=== PATIENT | female | born 1940 | race African-American/Black ===

== ENCOUNTER 2017-08-19 05:42 | Day surgery (SDC) | payer MEDICARE, OTHER ==
--- NOTE | 2017-08-17 02:15 | Pre-op HX & Phy Repo 2 SIG ---
DATE OF ADMISSION: 08/19/2017 DATE OF SURGERY: 08/19/2017 Preoperative Diagnosis: Significant epiretinal membrane with vitreomacular traction syndrome, right eye. Brief Note: This is the first [facility] retinal surgery admission for the patient, who is a very nice 77-year-old lady, who complains of poor vision in the right eye. Past Ocular History: Her past ocular history is remarkable for development of a significant central retinal vein occlusion in the right, which has been successfully treated with injections of Avastin and Eylea. As the edema has subsided, she has been noted to develop significant vitreomacular traction syndrome with splitting of the retinal layers and is admitted for vitrectomy. Her past ocular history is also remarkable for cataract surgery in the right eye done sometime ago. She has a cataract in the left. MEDICAL HISTORY: Remarkable for diabetes and hypertension. Medications: She is on atenolol, losartan, metformin, hydralazine, and simvastatin. ALLERGIES: She has no allergies. SOCIAL HISTORY: She does not smoke or drink. Physical Examination: Best vision at the time of admission was 20/200 in the right eye and 20/40- in the left with pressures 14 and 13. The anterior segment on the right showed a posterior chamber lens in reasonable position. The left showed a moderate cataract. Funduscopic examination of the right eye showed a resolving central retinal vein occlusion. There was a dense epiretinal membrane with preretinal fibrosis and vitreomacular traction. The left fundus showed pre-proliferative diabetic retinopathy with scattered macular aneurysms. ASSESSMENT: 1. Epiretinal membrane, right eye with vitreomacular traction syndrome. 2. Macular pucker, right eye. 3. Pseudophakia, right eye. 4. Cataract, left eye. Plan: The plan is to perform a pars plana vitrectomy with ICG-assisted membrane peeling on the right. An endolaser will likely be performed as well as an air-fluid exchange. The risks and benefits of surgery were gone over with the patient including the potential for infection, hemorrhage, glaucoma, and remote possibility of loss of the eye. The risk of anesthesia was discussed. The patient understands and consents to the surgery, which will be performed on Saturday. Holger Donovan M.D. DR: DENNIS JOB#: [id number] CC:
[~2017-08-19] VITALS: Ht 149.9 cm; Wt 73.5 kg
[2017-08-19] VITALS (8 sets, daily range): BP systolic 141–189; BP diastolic 63–78
[~2017-08-19 05:42] MED LIST: ASPIR-LOW81 MG PO; ATENOLOL100 MG PO; COMBIVENT INH14.7 GM INH; Cyclopentolate 1% Opth Sol ONE; DOXAZOSIN MESYLA8 MG PO; Flurbiprofen 0.03% Opth Sol 2.5ml ONE; GLUCOPHAGE500 MG PO; HYDRALAZINE HC100 MG PO; HYDROCHLOROTHIA25 MG PO; IRON325 M1 PO; LISINOPRIL40 MG PO; Phenylephrine 2.5% Op Soln ONE; Vigamox Opth Soln ONE; ZOCOR20 MG PO
[2017-08-19] MEDS ORDERED: Pred Forte 1% Opth Susp 1ml RIGHT EYE PRN (06:00)
[2017-08-19] MEDS ORDERED: Avastin 10mg Inj IVITRE ONE (06:00)
[2017-08-19] MEDS: Phenylephrine 2.5% Op Soln RIGHT EYE SCH ×3 (06:19→06:38)
[2017-08-19] MEDS: Cyclopentolate 1% Opth Sol RIGHT EYE SCH ×3 (06:19→06:38)
[2017-08-19] MEDS: Vigamox Opth Soln RIGHT EYE SCH ×3 (06:20→06:38)
[2017-08-19] MEDS: Flurbiprofen 0.03% Opth Sol 2.5ml RIGHT EYE SCH ×3 (06:20→06:38)
--- NOTE | 2017-08-19 06:20 | Pre-Procedure Note/Attestation ---
Pre-Procedure Note/Attestation Complete Prior to Procedure Planned Procedure: right Procedure Narrative: PPV, Membrane peel, endolaser, gas-fluid exchange Right eye Indications for Procedure Pre-Operative Diagnosis: Macular pucker with vitreomacular traction syndrome Right eye Attestation I attest that I discussed the nature of the procedure; its benefits; risks and complications; and alternatives (and the risks and benefits of such alternatives ), prior to the procedure, with the patient (or the patient's legal software sales representative). I attest that, if there was a reasonable possibility of needing a blood transfusion, the patient (or the patient's legal software sales representative) was given the [place] Department [employer] Services standardized written summary, pursuant to the [place] Blood Safety Act ([place] Health and Safety Code # 1645, as amended). I attest that I re-evaluated the patient just prior to the surgery and that there has been no change in the patient's H&P, except as documented below: GLEN RAMOS Aug 19, 2017 06:20
[2017-08-19] MEDS ORDERED: LOSARTAN POTASS50 MG ORAL (06:46)
[2017-08-19] MEDS ORDERED: BSS 500ml btl ONE (07:07)
[2017-08-19] MEDS ORDERED: Kenalog-40 1ml Vial ONE (07:07)
[2017-08-19] MEDS ORDERED: Kenalog-10 5ml Inj ONE (07:08)
[2017-08-19] MEDS ORDERED: Tetracaine 0.5% Opth Soln ONE (07:08)
[2017-08-19] MEDS ORDERED: Maxitrol Opth Oint 3.5gm ONE (07:08)
[2017-08-19] MEDS ORDERED: Dexamethasone 4mg/ml vial ONE (07:08)
[2017-08-19] MEDS ORDERED: Bupivacaine 0.75% 30ml vial INJ ONE (07:09)
[2017-08-19] MEDS ORDERED: Lidocaine 2% MPF 5ml Vial INJ ONE (07:09)
[2017-08-19] MEDS ORDERED: BSS 15ml BTL ONE (07:09)
[2017-08-19] MEDS ORDERED: EPINEPHrine 1mg/1ml Amp ONE (07:09)
[2017-08-19] MEDS ORDERED: Povidone-Iodine 5% opth solution ONE (07:09)
[2017-08-19] MEDS ORDERED: Sodium Hyaluronate 10 mg/ml 0.85ml ONE (07:10)
[2017-08-19 07:17] LABS: BASOPHILS % (AUTO) 1.6 % (0.0-2.0); EOSINOPHILS % (AUTO) 3.4 % (0.0-3.0); LYMPHOCYTES % (AUTO) 37.2 % (20.0-45.0); MEAN CORPUSCULAR HEMOGLOBIN 30.8 PG (27.0-31.0); MEAN CORPUSCULAR HGB CONC 32.9 G/DL (32.0-36.0); MEAN CORPUSCULAR VOLUME 94 FL (80-99); MEAN PLATELET VOLUME 7.9 FL (6.5-10.1); MONOCYTES % (AUTO) 7.8 % (1.0-10.0); NEUTROPHILS % (AUTO) 49.9 % (45.0-75.0); PLATELET COUNT 205 K/UL (150-450); RED CELL DISTRIBUTION WIDTH 12.9 % (11.6-14.8); WHITE BLOOD COUNT 8.7 K/UL (4.8-10.8)
[2017-08-19] MEDS ORDERED: Indocyanine Green 25mg Inj INJ ONE (07:20)
[2017-08-19 07:25] LABS: ANION GAP 14 (5-15); CALCIUM 11.4 mg/dL (8.6-10.2); CARBON DIOXIDE 24 mEQ/L (20-30); CHLORIDE 101 mEQ/L (98-107); CREATININE 1.5 mg/dL (0.5-0.9); HEMOLYSIS 42; POTASSIUM 4.2 mEQ/L (3.4-4.9); SODIUM 139 mEQ/L (135-145)
[2017-08-19] MEDS ORDERED: Alfentanil 2ml Inj ONE (07:30)
[2017-08-19] MEDS ORDERED: LR 1000ml ONE (07:30)
[2017-08-19] MEDS ORDERED: Propofol 200mg/20ml IV ONE (07:30)
[2017-08-19] MEDS ORDERED: Sodium Chloride 10ml vial INJ ONE (07:30)
[2017-08-19] MEDS ORDERED: Sterile Water Irrig 1000ml IRRIG ONE (07:30)
[2017-08-19] MEDS ORDERED: Lidocaine 1% MPF 10mg/ml 5ml ONE (07:30)
[2017-08-19] MEDS ORDERED: Midazolam 2mg/2ml Inj ONE (07:30)
[2017-08-19] MEDS ORDERED: Norco 5mg/325mg tab ORAL PRN ×2 (07:30→07:45)
[2017-08-19] MEDS ORDERED: NS Irrig 1000ml ONE (07:30)
--- NOTE | 2017-08-19 07:38 | Anethesia Preoperative Eval ---
Anesthesia Pre-op PMH/ROS General Date of Evaluation: Aug 19, 2017 Time of Evaluation: 07:26 Anesthesiologist: Aj ASA Score: ASA 3 Mallampati Score Class I : Soft palate, uvula, fauces, pillars visible Class II: Soft palate, uvula, fauces visible Class III: Soft palate, base of uvula visible Class IV: Only hard plate visible Mallampati Classification: Class III Surgeon: Venus Diagnosis: Macular Puker OD Surgical Procedure: Vitrectomy OD Family History: no anesthesia problems Allergies: Coded Allergies: No Known Allergies (Verified Allergy, Unknown, 08/03/10) Medications: see eMAR Past Medical History Cardiovascular: Reports: HTN, CAD - CHF, SX, arrhythmia Pulmonary: Reports: other - Bronchitis Endocrine: Reports: DM Hematology/Immune: Reports: anemia Other: obesity - BMI 337 Anesthesia Pre-op Phys. Exam Physician Exam Last Vital Signs Date Time Temp Pulse Resp B/P (MAP) Pulse Ox O2 Delivery O2 Flow Rate FiO2 08/19/17 06:24 98.4 68 20 177/66 99 Room Air Constitutional: NAD Neurologic: CN 2-12 intact Cardiovascular: RRR Respiratory: CTA Gastrointestinal: S/NT/ND Airway Exam Mallampati Score: Class III MO: limited ROM: limited Teeth: missing, intact Anesthesia Pre-op A/P Labs Hematology Test 08/19/17 06:15 White Blood Count 8.7 K/UL (4.8-10.8) Red Blood Count 3.70 M/UL (4.20-5.40) L Hemoglobin 11.4 G/DL (12.0-16.0) L Hematocrit 34.7 % (37.0-47.0) L Mean Corpuscular Volume 94 FL (80-99) Mean Corpuscular Hemoglobin 30.8 PG (27.0-31.0) Mean Corpuscular Hemoglobin Concent 32.9 G/DL (32.0-36.0) Red Cell Distribution Width 12.9 % (11.6-14.8) Platelet Count 205 K/UL (150-450) Mean Platelet Volume 7.9 FL (6.5-10.1) Neutrophils (%) (Auto) 49.9 % (45.0-75.0) Lymphocytes (%) (Auto) 37.2 % (20.0-45.0) Monocytes (%) (Auto) 7.8 % (1.0-10.0) Eosinophils (%) (Auto) 3.4 % (0.0-3.0) H Basophils (%) (Auto) 1.6 % (0.0-2.0) Chemistry Test 08/19/17 06:15 Sodium Level 139 mEQ/L (135-145) Potassium Level 4.2 mEQ/L (3.4-4.9) Chloride Level 101 mEQ/L (98-107) Carbon Dioxide Level 24 mEQ/L (20-30) Anion Gap 14 (5-15) Blood Urea Nitrogen 27 mg/dL (7-23) H Creatinine 1.5 mg/dL (0.5-0.9) H Estimat Glomerular Filtration Rate mL/min (>60) Glucose Level 129 mg/dL (74-106) H Calcium Level 11.4 mg/dL (8.6-10.2) H Risk Assessment & Plan Assessment: ASA 3 Plan: GA Status Change Before Surgery: Frank Zee MD Aug 19, 2017 07:38
[2017-08-19] MEDS ORDERED: Ketorolac 30mg Inj IV PRN (07:45)
[2017-08-19] MEDS ORDERED: Meperidine 25mg/0.5ml Inj (FOR RIGORS ONLY) IV PRN (07:45)
[2017-08-19] MEDS ORDERED: oxyCODONE HCL/Acetaminophen 5/325mg ORAL PRN (07:45)
[2017-08-19] MEDS ORDERED: Atropine Inj 1mg/10ml Syr IV PRN (07:45)
[2017-08-19] MEDS ORDERED: Hydromorphone 0.5mg/0.5ml inj IVP PRN (07:45)
[2017-08-19] MEDS ORDERED: Midazolam 2mg/2ml Inj IVP PRN (07:45)
[2017-08-19] MEDS ORDERED: LR 1000ml 1,000 ML IVLG SCH (07:45)
[2017-08-19] MEDS ORDERED: Norco 7.5mg/325mg tab ORAL PRN (07:45)
[2017-08-19] MEDS ORDERED: DiphenhydrAMINE 50mg/ml Inj IVP PRN (07:45)
[2017-08-19] MEDS ORDERED: Metoclopramide 10mg/2ml Inj IVP PRN (07:45)
[2017-08-19] MEDS ORDERED: LORazepam Inj 2mg/ml 1ml IV PRN (07:45)
[2017-08-19] MEDS ORDERED: Ketorolac 60mg Inj IV PRN (07:45)
[2017-08-19] MEDS ORDERED: fentaNYL 100 mcg/2 mL IV PRN (07:45)
--- NOTE | 2017-08-19 07:52 | Immediate Post-Op Evaluation ---
Immediate Post-Op Evalulation Immediate Post-Op Evalulation Procedure: Vitrectomy OD Date of Evaluation: Aug 19, 2017 Time of Evaluation: 08:54 IV Fluids: 1000 LR Blood Products: 0 Estimated Blood Loss: 1 Urinary Output: 0 Blood Pressure Systolic: 185 Blood Pressure Diastolic: 74 Pulse Rate: 66 Respiratory Rate: 16 O2 Sat by Pulse Oximetry: 100 Temperature (Fahrenheit): 98 Pain Score (1-10): 1 Nausea: No Vomiting: No Complications 0 Patient Status: awake, reacts, patent, none Hydration Status: adequate Frank Rocha MD Aug 19, 2017 07:52
--- NOTE | 2017-08-19 07:53 | 48 Hour Post Anesthesia Eval ---
Post Anesthesia Evaluation Procedure: Vitrectomy OD Date of Evaluation: Aug 19, 2017 Time of Evaluation: 10:57 Blood Pressure Systolic: 184 0: 67 Pulse Rate: 64 Respiratory Rate: 18 Temperature (Fahrenheit): 98.2 O2 Sat by Pulse Oximetry: 100 Airway: patent Nausea: No Vomiting: No Pain Intensity: 1 Hydration Status: adequate Cardiopulmonary Status: Stable Mental Status/LOC: patient returned to baseline Follow-up Care/Observations: 0 Post-Anesthesia Complications: 0 Follow-up care needed: ready to discharge Frank Rocha MD Aug 19, 2017 07:53
--- NOTE | 2017-08-19 08:48 | Brief Operative Note ---
Immediate Post Operative Note Operative Note Chief Complaint: Blurred central vision R eye Pre-op Diagnosis: Macular pucker with vitreomacular traction syndrome Right eye Procedure: PPV, membrane peel with ICG assist, endolaser 803 spots, gas-fluid exchange (24 % SF6), Avastin injection 1.25 mg, Kenalog injection Right eye Post-op Diagnosis: Macular pucker with VMT and suspected progression to macular hole Right eye Post-op Diagnosis: same as pre-op plus - suspected progression to macular hole Right eye Surgeon: chen Guest Services Representative: Jean Paul meonn Anesthesiologist: Aj Anesthesia: MAC Specimen: none Complications: none Condition: stable Fluids: None Estimated Blood Loss: none Drains: none Implant(s) used?: No GLEN RAMOS Aug 19, 2017 08:48
--- NOTE | 2017-08-19 17:30 | Operative Note - Dictated ---
DATE OF OPERATION: 08/19/2017 Preoperative Diagnosis: Vitreomacular traction syndrome with macular pucker and partial thickness macular hole, right eye. Postoperative Diagnosis: Vitreomacular traction syndrome with macular pucker and partial thickness macular hole, right eye with suspected progression of macular hole, right eye. SURGEON: Holger Donovan M.D. [employer] WORKER: Jean Paul Bird M.D. ANESTHESIA: Local sedation. ANESTHESIOLOGIST: Frank Rocha M.D. Justification For Surgery: This 77-year-old lady sometime ago developed a central retinal vein occlusion with massive edema. This was treated with injections in the office, but as the central fluid resorbed, she was noted to have significant vitreomacular traction with a partial thickness macular hole. Brief Note: The patient was brought to the operative room and placed on operating room table in supine position. After a time-out was performed and agreed upon by the staff, an initial monitoring secured by Dr. Rocha, retrobulbar and Van Lint blocks given in the standard way. When the blocks have taken effect, she was prepped and draped in normal manner. A lid speculum was inserted into the right eye. Using a 23-gauge trocar system, cannulas were placed in all except infranasal quadrant. Infusion secured inferotemporally. Vitrectomy was begun posterior to the lens implant. A central core vitrectomy was done followed by peripheral vitrectomy leaving a small vitreous skirt. Kenalog was used to aid in visualization of the vitreous. There was noted to be a very taut posterior hyaloid that remained attached. A posterior viewing lens was inserted and with gentle suction, the posterior hyaloid was elevated and removed. Examination showed what appeared to be a possible progression to a full thickness macular hole, so it was elected to treat as such. An injection of ICG, one drop was used to stain the internal limiting lamina. This was removed and using intravitreal forceps, an area roughly 2.5 disc diameters in size was removed surrounding the central macula. This went without difficulty. Scleral depression was then performed, no peripheral breaks, tears, or detachments were seen. The endolaser was brought into the eye and a of 0.3 mathis duration of 0.2 seconds, a focal aneurysms were treated posteriorly. The wide angle viewing system was then brought back into the field and laser was placed in the far periphery for a total of 803 spots. An air-fluid exchange was then performed followed by a gas gas exchange of 24% C3F8. The two superior cannulas were removed and each sclerotomy closed with 8-0 Vicryl suture with the single surgeon's knot. Through the infusion cannula, Avastin 1.25 mg was injected and this was subsequently also removed and the sclerotomy closed with the same 8-0 Vicryl suture. Subconjunctival Decadron and gentamicin were then injected and Maxitrol and atropine ointments were instilled. The eye was patched and shielded and the patient was taken to recovery in excellent condition. There were no complications. Holger Donovan M.D. DR: DENNIS JOB#: [id number] CC: Holger Donovan M.D.; Fax#: [phone] Paul Bird M.D. ; Fax#: [phone]
--- NOTE | 2017-08-19 19:02 | Cardiology Report ---
APPROVED REPORT EKG Measurement Heart [id number] KS [id number] [id number] Normal sinus rhythm T wave abnormality, consider inferior ischemia Abnormal ECG
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
== END 2017-08-19 10:25 | disposition home or self-care (01) ==
LOC: SUR 05:42
DX: H35.371 Puckering of macula, right eye (principal); H35.341 Macular cyst, hole, or pseudohole, right eye; H43.821 Vitreomacular adhesion, right eye; E11.9 Type 2 diabetes mellitus without complications; I10 Essential (primary) hypertension; I25.9 Chronic ischemic heart disease, unspecified
CPT/HCPCS: 36415; 67039; 80048; 82962; 85025; 93005; J0171; J1100; J2250; J2704; J3301; J3470; J3490; J7120; 94003; 94150